=== PATIENT | female | born 1960 | race Caucasian/White ===

== ENCOUNTER 2018-01-19 15:24 | Emergency (ER) | payer SELFPAY ==
--- NOTE | 2018-01-19 16:17 | CT ---
CT BRAIN WITHOUT CONTRAST 01/19/18 HISTORY: Fall, trauma, no loss of consciousness. Patient is intoxicated. FINDINGS: No evidence of infarct, hemorrhage, midline shift or abnormal extra-axial fluid collections are seen. Ventricular size is normal and the basilar cisterns patent. The bony calvarium is intact. There is m ucosal disease in the paranasal sinuses. IMPRESSION: No CT evidence of acute intracranial process. POS: [facility]
--- NOTE | 2018-01-19 16:33 | CT ---
CT FACIAL BONES: 01/19/18 Multiple axial tomograms obtained through the facial bones with multiplanar reconstructions. HISTORY: Patient fell with injury to face. There is a linear lucency in the left nasal bone near the maxilla which may represent a small fractur e. Minimal depression of the nasal ridge is also seen. Recommend clinical correlation regarding nasal tenderness. I cannot exclude subtle nasal bone fractures. Orbits appear intact. Zygoma are intact. T here is mild mucosal thickening improved to the maxillary sinuses. Maxillary sinuses are otherwise we ll aerated as are the frontal sinuses. Mild mucosal thickening in posterior ethmoids. Sphenoid air ce lls are clear. Maxilla appears intact. Mandible appears intact. IMPRESSION: 1. Question nasal bone fractures. Age is indeterminate. Recommend clinical correlation. 2. Otherwise no acute facial bone fracture identified. POS: [facility]
== END 2018-01-19 16:29 | disposition home or self-care (01) ==
LOC: NAV ERS 15:24
DX: S02.2XXA Fracture of nasal bones, initial encounter for closed fracture (principal); S60.221A Contusion of right hand, initial encounter; S00.83XA Contusion of other part of head, initial encounter; F10.129 Alcohol abuse with intoxication, unspecified; F17.210 Nicotine dependence, cigarettes, uncomplicated; Z79.899 Other long term (current) drug therapy; W18.30XA Fall on same level, unspecified, initial encounter
CPT/HCPCS: 70450; 70486